=== PATIENT | female | born 1940 | race Caucasian/White ===

== ENCOUNTER 2017-05-15 10:53 | Day surgery (SDC) | payer OTHER ==
[~2017-05-15 10:53] MED LIST: NS 500 ML IV 500 ML IV ONE; VERSED ONE
[2017-05-15] MEDS ORDERED: TETRACAINE 0.5% OPHTH 1 DOSE AFFEYE ONE ×8 (11:00→13:26)
[2017-05-15] MEDS ORDERED: VIGAMOX 0.5% OPHTH 1 DOSE AFFEYE ONE ×6 (11:05→13:39)
[2017-05-15] MEDS ORDERED: PROLENSA OPHTH 1 DOSE AFFEYE ONE (11:16)
[2017-05-15] MEDS ORDERED: ALPHAGAN-P OPHTH 1 DOSE AFFEYE ONE (11:17)
[2017-05-15] MEDS ORDERED: CYCLOGYL 1% OPHTH 1 DOSE OP ONE ×3 (11:18→11:20)
[2017-05-15] MEDS ORDERED: MYDRIACIL OPHTH 1 DOSE AFFEYE ONE ×4 (11:18→11:20)
[2017-05-15] MEDS ORDERED: AK-DILATE 2.5% OPHTH 1 DOSE OP ONE ×2 (11:19→11:20)
[2017-05-15] MEDS ORDERED: VERSED IVP ONE ×2 (11:42→13:00)
[2017-05-15] MEDS ORDERED: AK-DILATE 10% OPHTH 1 DOSE AFFEYE ONE ×2 (11:42→13:02)
[2017-05-15] MEDS ORDERED: ADRENALINE CHL INJ IJ ONE ×2 (13:13→13:26)
[2017-05-15] MEDS ORDERED: BETADINE OPHTH SOLN 5% EACHEYE ONE ×2 (13:13→13:21)
[2017-05-15] MEDS ORDERED: XYLOCAINE-MPF 1% IJ ONE ×2 (13:14→13:26)
[2017-05-15] MEDS ORDERED: DUOVISC IO ONE ×2 (13:14→13:26)
[2017-05-15] MEDS ORDERED: BSS OPHTH (PLAIN) 500 ML with VANCOMYCIN HCL 500 MG VIAL 25 MG, ADRENALINE CHL INJ 1 MG IR ONE ×3 (13:26)
[2017-05-15 14:16] VITALS: BP 120/70
== END 2017-05-15 14:00 | disposition home or self-care (01) ==
LOC: SURG1 10:53
PROVIDERS: ATTEND Ophthalmology
PROC: 08RK3JZ Replacement of Left Lens with Synthetic Substitute, Percutaneous Approach (ICD-10-PCS; principal; 2017-05-15 16:00)
PROC: 08DK3ZZ Extraction of Left Lens, Percutaneous Approach (ICD-10-PCS; principal; 2017-05-15 16:00)
DX: H25.12 Age-related nuclear cataract, left eye (principal); H25.012 Cortical age-related cataract, left eye; H52.222 Regular astigmatism, left eye
CPT/HCPCS: 99100; V2797; A4217; J0170; J2250; J3370